=== PATIENT | male | born 1970 | race Native Hawaiian/Other Pacific Islander ===

== ENCOUNTER 2020-09-27 08:12 | Emergency (ER) | payer OTHER ==
[2020-09-27 08:30] VITALS: BP 150/72
[2020-09-27] MEDS ORDERED: traMADol 50 MG TAB PO ONE (09:00)
--- NOTE | 2020-09-27 09:26 | XRay Report ---
LEFT KNEE 3 VIEW(S) INDICATION / CLINICAL INFORMATION: Left knee pain COMPARISON: None available. FINDINGS: BONES / JOINT(S): No acute fracture or subluxation. No significant arthritis. SOFT TISSUES: No significant abnormality. ADDITIONAL FINDINGS: None. Signer Name: Ryan Gonsales MD Signed: 09/27/2020 9:21 AM Workstation Name: [id number]
--- NOTE | 2020-09-27 10:26 | Emergency Department Report ---
ED Lower Extremity HPI - General Chief Complaint: Extremity Injury, Lower Stated Complaint: RIGHT LEG INJURY Time Seen by Provider: 09/27/20 08:57 Source: patient, family Mode of arrival: Wheelchair Limitations: Language Barrier - History of Present Illness Initial Comments: This is a 50-year-old obese male in no acute distress. Patient states that yesterday morning around 10:30 AM he fell off the truck onto his left knee he was able to get up and walk. Upon waking up today the pain has worsened so he is complaining of pain and swelling to the left knee and difficulty ambulating. Patient denies any other injuries he denies neck and back pain he denies any loss of consciousness or striking anything else besides his left knee onto the concrete MD Complaint: knee injury -: Sudden Injury: Knee: Left Type of Injury: other Place: work (Fall off the back of a truck onto his left knee) Severity: moderate Context: fall, direct blow Associated Symptoms: swelling, able to partially bear weight - Related Data Allergies Allergy/AdvReac Type Severity Reaction Status Date / Time aspirin Allergy Anaphylaxis Verified 09/27/20 08:26 ciprofloxacin [From Cipro] Allergy Anaphylaxis Verified 09/27/20 08:26 NSAIDS (Non-Steroidal Allergy Anaphylaxis Verified 09/27/20 08:26 Anti-Inflamma ED Review of Systems ROS: Stated complaint: RIGHT LEG INJURY Other details as noted in HPI Comment: All other systems reviewed and negative Constitutional: no symptoms reported. denies: chills, fever, weakness Eyes: denies: eye pain, vision change Respiratory: denies: no symptoms reported, shortness of breath, wheezing Cardiovascular: denies: chest pain, palpitations, dyspnea on exertion, syncope, paroxysmal nocturnal dyspnea Endocrine: no symptoms reported Gastrointestinal: denies: abdominal pain Musculoskeletal: other (Left knee pain and swelling). denies: back pain Skin: denies: rash, lesions Neurological: abnormal gait. denies: headache, weakness, paresthesias, confusion Psychiatric: denies: anxiety, depression Hematological/Lymphatic: denies: easy bleeding, easy bruising, swollen glands ED Past Medical Hx - Past Medical History Previous Medical History?: Yes Additional medical history: Groin pain, Undescended testicle, Prediabetic - Surgical History Past Surgical History?: No - Social History Smoking Status: Current Every Day Smoker Substance Use Type: Alcohol ED Physical Exam - General Limitations: No Limitations, Language Barrier General appearance: alert, in no apparent distress - Head Head exam: Present: atraumatic - Eye Eye exam: Present: normal appearance - ENT ENT exam: Present: normal exam - Neck Neck exam: Present: normal inspection, full ROM - Respiratory Respiratory exam: Present: normal lung sounds bilaterally. Absent: respiratory distress, chest wall tenderness - Cardiovascular Cardiovascular Exam: Present: regular rate, normal heart sounds - GI/Abdominal GI/Abdominal exam: Present: soft. Absent: distended, tenderness - Rectal Rectal exam: Absent: deferred - exam: Absent: normal inspection - Extremities Exam Extremities exam: Present: normal inspection, full ROM (Left knee no swelling no deformity skin intact no bruising noted ), tenderness, normal capillary refill. Absent: pedal edema, joint swelling, calf tenderness - Neurological Exam Neurological exam: Present: alert, oriented X3 - Psychiatric Psychiatric exam: Present: normal affect - Skin Skin exam: Present: warm, dry, intact, normal color. Absent: rash ED Course Vital Signs 09/27/20 09/27/20 08:26 09:14 Temperature 98.4 F Pulse Rate 83 Respiratory 18 18 Rate Blood Pressure 150/72 O2 Sat by Pulse 98 Oximetry - Reevaluation(s) Reevaluation #1: 09/27/20 10:28 Patient in no distress reviewed x-ray results with patient ED Lower Extremity MDM - Radiology Data Radiology results: report reviewed LEFT KNEE 3 VIEW(S) INDICATION / CLINICAL INFORMATION: Left knee pain COMPARISON: None available. FINDINGS: BONES / JOINT(S): No acute fracture or subluxation. No significant arthritis. SOFT TISSUES: No significant abnormality. ADDITIONAL FINDINGS: None. Critical Care Time: No Critical care attestation.: If time is entered above; I have spent that time in minutes in the direct care of this critically ill patient, excluding procedure time. ED Disposition Clinical Impression: Contusion of knee, left Qualifiers: Encounter type: initial encounter Qualified Code(s): S80.02XA - Contusion of l eft knee, initial encounter Disposition: TO HOME OR SELFCARE Is pt being admited?: No Does the pt Need Aspirin: No Condition: Stable Instructions: Contusion, [id number] Additional Instructions: LEFT KNEE Xray FINDINGS: BONES / JOINT(S): No acute fracture or subluxation. No significant arthritis. SOFT TISSUES: No significant abnormality. ADDITIONAL FINDINGS: None. The x-ray of your left knee shows no broken bones or dislocation x-rays cannot rule out tendon injury. Please wear knee immobilizer while up and walking remove at bedtime if needed you can also use crutches. Follow-up with orthopedic doctor Dr. Choudhary who will decide if additional work-up is needed. Apply cold packs on for 10 minutes off for 10 3-4 times daily for the next week. Take Tylenol 2 tabs every 4-6 hours as needed for pain Referrals: PRIMARY CARE, [Primary Care Provider] - 3-5 Days MELCHOR CHOUDHARY MD [Staff Physician] - 3-5 Days Time of Disposition: 10:40
== END 2020-09-27 11:09 | disposition home or self-care (01) ==
LOC: ED 08:12
DX: S80.02XA Contusion of left knee, initial encounter (principal); F17.200 Nicotine dependence, unspecified, uncomplicated; Z88.1 Allergy status to other antibiotic agents; Z88.6 Allergy status to analgesic agent; Z88.8 Allergy status to other drugs, medicaments and biological substances; W19.XXXA Unspecified fall, initial encounter; Y93.89 Activity, other specified; Y92.89 Other specified places as the place of occurrence of the external cause; Y99.8 Other external cause status